=== PATIENT | female | born 1935 | race Hispanic/Latino ===

== ENCOUNTER 2020-11-24 18:46 | Inpatient (IN) | payer OTHER, MEDICARE ==
[~2020-11-24] VITALS: Ht 160 cm; Wt 93.3 kg
[2020-11-24 18:50] VITALS: BP 153/71
[2020-11-24 19:43] LABS: EOSINOPHILS % (AUTO) 1.8 % (0.0-8.0); HEMATOCRIT 39.7 % (36-48); LYMPHOCYTES % (AUTO) 5.1 % (21.0-51.0); MEAN CORPUSCULAR HEMOGLOBIN 26.7 pg (27.0-33.0); MEAN CORPUSCULAR HGB CONC 33.2 g/dL (32.0-36.0); MEAN CORPUSCULAR VOLUME 80.2 fL (79-99); MONOCYTES % (AUTO) 3.9 % (3.0-13.0); NEUTROPHILS % (AUTO) 88.8 % (40.0-77.0); PLATELET COUNT (AUTO) 202 K/uL (130-400); RED BLOOD CELL COUNT(AUTO) 4.95 MIL/uL (4.00-5.50); RED CELL DISTRIBUTION WIDTH 13.5 % (11.0-15.5); WHITE BLOOD COUNT (AUTO) 9.1 K/uL (4.8-10.8)
[2020-11-24 19:52] LABS: ABG BASE EXCESS 3.1 mmol/L (-2.0-3.0); ABG HCO3 25.8 mmol/L (21.0-28.0); ABG OXYGEN SATURATION 73.1 % (95.0-99.0); ABG PCO2 34 mmHg (32-45)
[2020-11-24] MEDS ORDERED: CEFTRIAXONE 2GM VIAL IVP ONE (20:00)
[2020-11-24] MEDS ORDERED: AZITHROMYCIN 500MG+NS 250ML IV ONE (20:00)
[2020-11-24] MEDS ORDERED: 0.9% NACL 250ML IVPB ONE (20:00)
[2020-11-24] MEDS ORDERED: CEFTRIAXONE 1G VIAL 2 GM in 0.9%NACL 100ML 100 ML IV ONE (20:00)
[2020-11-24] MEDS ORDERED: AZITHROMYCIN 500MG VIAL IVPB ONE (20:00)
[2020-11-24 20:19] LABS: ABG BASE EXCESS 3.8 mmol/L (-2.0-3.0); ABG HCO3 26.4 mmol/L (21.0-28.0); ABG OXYGEN SATURATION 69.1 % (95.0-99.0); ABG PCO2 34 mmHg (32-45)
[2020-11-24 20:24] LABS: INR 0.95 (0.85-1.15); PROTHROMBIN TIME 10.4 SEC (9.6-11.6)
[2020-11-24 20:56] LABS: CREATININE 0.6 mg/dL (0.5-1.5); POTASSIUM 3.8 mmol/L (3.5-5.1)
[2020-11-24] MEDS ORDERED: CEFTRIAXONE 2GM VIAL ONE (21:04)
[2020-11-24] MEDS ORDERED: AZITHROMYCIN 500MG+NS 250ML 250 ML IV ONE (21:05)
[2020-11-24 21:07] LABS: ALBUMIN 2.5 g/dL (3.5-5.0); BILIRUBIN,TOTAL 0.4 mg/dL (0.2-1.0); TOTAL PROTEIN, SERUM 6.9 g/dL (6.0-8.3)
[2020-11-24] MEDS ORDERED: DOXY100T2 PO (21:22)
[2020-11-24] MEDS ORDERED: NEO/5DRO7 OP (21:37)
[2020-11-24] MEDS ORDERED: ERGO500093 PO (21:37)
[2020-11-24] MEDS ORDERED: ACET650T9 PO (21:37)
[2020-11-24] MEDS ORDERED: DONE5TAB33 PO (21:37)
[2020-11-24] MEDS ORDERED: AMLO25PO MC (21:37)
[2020-11-24] MEDS ORDERED: [UNRECOGNIZED DRUG - CODE] PO (21:37)
[2020-11-24] MEDS ORDERED: MEMA1TAB2 PO (21:37)
[2020-11-24] MEDS ORDERED: D-ME118S56 PO (21:37)
[2020-11-24] MEDS ORDERED: ALEN70SO3 PO (21:37)
[2020-11-24] MEDS ORDERED: ALBU2.5V2 IH (21:37)
[2020-11-24] MEDS ORDERED: CICL34.62 TP (21:37)
[2020-11-24] MEDS ORDERED: MIRA25TA PO (21:37)
[2020-11-24] MEDS ORDERED: DEXA4TAB PO (21:37)
[2020-11-24] MEDS ORDERED: IVER3TAB PO (21:37)
[2020-11-24 21:41] VITALS: BP 139/71
[2020-11-24] MEDS ORDERED: MAG/ALUM/SIMETH 30 ML UDCUP ONE (22:00)
[2020-11-24] MEDS ORDERED: LIDOCAINE HCL 2% VISCOUS 15 ML UDCUP ONE (22:00)
[2020-11-24] MEDS ORDERED: IOHEXOL 350 MG/ML 100ML INFUS..BTL IV ONE (22:35)
[2020-11-24 23:45] VITALS: BP 152/72
[2020-11-25] VITALS (22 sets, daily range): BP systolic 94–170; BP diastolic 53–115
[2020-11-25] MEDS ORDERED: MAG/ALUM/SIMETH 30 ML UDCUP PO SCH (07:11)
[2020-11-25] MEDS ORDERED: ONDANSETRON ODT 4MG TAB PO PRN (08:00)
[2020-11-25] MEDS ORDERED: ACETAMINOPHEN 325 MG TAB PO PRN ×2 (08:00→12:00)
[2020-11-25] MEDS ORDERED: SOLU-MEDROL 40MG VIAL IVP SCH (09:00)
[2020-11-25] MEDS ORDERED: ENOXAPARIN SODIUM 40 MG/0.4 ML SYRINGE SQ SCH (09:00)
[2020-11-25] MEDS: CEFTRIAXONE 1G VIAL IVP SCH (09:31)
[2020-11-25] MEDS: 0.9% NACL 250ML 250 ML IV SCH ×2 (09:32→20:12)
[2020-11-25] MEDS: DOXYCYCLINE 100MG+NS 250ML IV SCH ×2 (09:32→20:11)
[2020-11-25] MEDS ORDERED: PHARMACY COMMUNICATION MISC SCH (12:00)
[2020-11-25] MEDS: PHARMACY COMMUNICATION MISC SCH ×4 (13:08→23:52)
[2020-11-25] MEDS: DIAZEPAM 5 MG TABLET PO PRN ×2 (14:40→22:29)
[2020-11-25] MEDS ORDERED: DILTIAZEM 25MG INJ IVP SCH (15:00)
[2020-11-25] MEDS ORDERED: SOLU-MEDROL 40MG VIAL IVP ONE (15:30)
[2020-11-25] MEDS ORDERED: DiphenhydrAMINE HCL 50 MG/ML VIAL IVP ONE (15:30)
[2020-11-25] MEDS ORDERED: ACETAMINOPHEN 650 MG/20.3 ML UDCUP NG ONE (15:30)
[2020-11-25] MEDS ORDERED: MAGNESIUM 2GM PREMIX 50ML 50 ML IV ONE (15:45)
[2020-11-25] MEDS ORDERED: TOCILIZUMAB 200MG VIAL 600 MG in 0.9%NACL 100ML 100 ML IV ONE (16:00)
[2020-11-25] MEDS ORDERED: MAGNESIUM 2GM PREMIX 50ML 50 ML IV PRN (16:00)
[2020-11-25] MEDS: SOLU-MEDROL 125MG VIAL IVP SCH ×2 (17:04→23:51)
[2020-11-25 17:11] LABS: APPEARANCE,URINE Clear (CLEAR); BILIRUBIN,URINE Negative (NEGATIVE); COLOR,URINE Yellow (YELLOW); GLUCOSE, URINE (UA) Negative (NEGATIVE); KETONES,URINE Trace mg/dL (NEGATIVE); LEUKOCYTE ESTERASE ,URINE Negative (NEGATIVE); NITRATE,URINE Positive (NEGATIVE); OCCULT BLOOD,URINE Nonhemolyzed Trace (NEGATIVE); PROTEIN,URINE POS 2+ mg/dL (NEGATIVE)
[2020-11-25 17:20] LABS: BACTERIA,URINE Few /HPF (None Seen); WBC,URINE 0-1 /HPF (0-1)
[2020-11-25 17:21] LABS: SQUAMOUS EPITHELIAL CELL,UR Rare /HPF (0-2)
[2020-11-25] MEDS: DILTIAZEM 125 MG/25 ML INJ 125 MG in 0.9%NACL 100ML 100 ML IV SCH (18:08)
[2020-11-25] MEDS: MEMANTINE HCL 5 MG TABLET PO SCH (20:12)
[2020-11-25] MEDS: DONEPEZIL HCL 5 MG TAB PO SCH (20:12)
[2020-11-25] MEDS: ENOXAPARIN SODIUM 80 MG/0.8 ML SQ SCH (20:13)
[2020-11-26] VITALS (47 sets, daily range): BP systolic 64–161; BP diastolic 39–100
[2020-11-26] MEDS: PHARMACY COMMUNICATION MISC SCH ×5 (04:33→21:51)
[2020-11-26 04:50] LABS: HEMATOCRIT 42.5 % (36-48); MEAN CORPUSCULAR HEMOGLOBIN 26.7 pg (27.0-33.0); MEAN CORPUSCULAR HGB CONC 33.2 g/dL (32.0-36.0); MEAN CORPUSCULAR VOLUME 80.5 fL (79-99); RED BLOOD CELL COUNT(AUTO) 5.28 MIL/uL (4.00-5.50); RED CELL DISTRIBUTION WIDTH 13.7 % (11.0-15.5); WHITE BLOOD COUNT (AUTO) 9.7 K/uL (4.8-10.8)
[2020-11-26 05:02] LABS: CREATININE 0.8 mg/dL (0.5-1.5); MAGNESIUM 2.7 mg/dL (1.80-2.40); PHOSPHORUS 3.9 mg/dL (2.5-4.9); POTASSIUM 4.1 mmol/L (3.5-5.1)
[2020-11-26] MEDS: DILTIAZEM 125 MG/25 ML INJ 125 MG in 0.9%NACL 100ML 100 ML IV SCH (05:17)
[2020-11-26 07:20] LABS: ABG BASE EXCESS 0.8 mmol/L (-2.0-3.0); ABG HCO3 25.1 mmol/L (21.0-28.0); ABG OXYGEN SATURATION 94.6 % (95.0-99.0); ABG PCO2 39 mmHg (32-45)
[2020-11-26] MEDS: DOXYCYCLINE 100MG+NS 250ML IV SCH ×2 (07:43→20:43)
[2020-11-26] MEDS: 0.9% NACL 250ML 250 ML IV SCH ×2 (07:44→20:43)
[2020-11-26] MEDS: DIAZEPAM 5 MG TABLET PO PRN ×2 (07:44→13:33)
[2020-11-26] MEDS: CEFTRIAXONE 1G VIAL IVP SCH (07:45)
[2020-11-26] MEDS: SOLU-MEDROL 125MG VIAL IVP SCH ×3 (07:45→23:22)
[2020-11-26] MEDS: ENOXAPARIN SODIUM 80 MG/0.8 ML SQ SCH ×2 (07:46→20:44)
[2020-11-26] MEDS ORDERED: MEMANTINE HCL 5 MG TABLET PO SCH (09:00)
[2020-11-26] MEDS: DEXMEDETOMIDINE HCL 400 MCG in 0.9%NACL 100ML 100 ML IV SCH ×2 (15:05→23:23)
[2020-11-26] MEDS ORDERED: 0.9%NACL 1000ML 1,000 ML IV SCH (18:00)
[2020-11-26] MEDS: DONEPEZIL HCL 5 MG TAB PO SCH (20:44)
[2020-11-26] MEDS: MEMANTINE HCL 5 MG TABLET PO SCH (20:44)
[2020-11-27] VITALS (75 sets, daily range): BP systolic 85–202; BP diastolic 44–117
[2020-11-27] MEDS: PHARMACY COMMUNICATION MISC SCH ×6 (02:00→21:57)
[2020-11-27 04:19] LABS: HEMATOCRIT 38.3 % (36-48); MEAN CORPUSCULAR HEMOGLOBIN 26.6 pg (27.0-33.0); MEAN CORPUSCULAR HGB CONC 32.9 g/dL (32.0-36.0); MEAN CORPUSCULAR VOLUME 80.8 fL (79-99); RED BLOOD CELL COUNT(AUTO) 4.74 MIL/uL (4.00-5.50); RED CELL DISTRIBUTION WIDTH 13.7 % (11.0-15.5); WHITE BLOOD COUNT (AUTO) 9.5 K/uL (4.8-10.8)
[2020-11-27 04:36] LABS: CREATININE 0.7 mg/dL (0.5-1.5); CRP QUANTITATIVE 150.8 mg/L (0.00-9.0); POTASSIUM 4.1 mmol/L (3.5-5.1)
[2020-11-27] MEDS: DILTIAZEM 125 MG/25 ML INJ 125 MG in 0.9%NACL 100ML 100 ML IV SCH (05:46)
[2020-11-27 07:35] LABS: ABG BASE EXCESS -5.5 mmol/L (-2.0-3.0); ABG HCO3 21.4 mmol/L (21.0-28.0); ABG OXYGEN SATURATION 89.5 % (95.0-99.0); ABG PCO2 47 mmHg (32-45)
[2020-11-27] MEDS ORDERED: FENTANYL 2500MCG+NS 250ML 250 ML IV ONE ×2 (08:05→08:27)
[2020-11-27] MEDS: SOLU-MEDROL 125MG VIAL IVP SCH ×3 (09:27→23:22)
[2020-11-27] MEDS: CEFTRIAXONE 1G VIAL IVP SCH (09:28)
[2020-11-27] MEDS: ENOXAPARIN SODIUM 80 MG/0.8 ML SQ SCH ×2 (09:28→21:18)
[2020-11-27] MEDS: 0.9% NACL 250ML 250 ML IV SCH ×2 (09:28→21:17)
[2020-11-27] MEDS: DOXYCYCLINE 100MG+NS 250ML IV SCH ×2 (09:28→21:17)
[2020-11-27 10:02] LABS: ABG BASE EXCESS -4.5 mmol/L (-2.0-3.0); ABG HCO3 21.3 mmol/L (21.0-28.0); ABG PCO2 42 mmHg (32-45)
[2020-11-27 18:55] LABS: INR 1.09 (0.85-1.15); PROTHROMBIN TIME 11.8 SEC (9.6-11.6)
[2020-11-27] MEDS ORDERED: PANTOPRAZOLE 40 MG/VIAL IVP SCH (20:00)
[2020-11-27] MEDS: PHENYLEPHRINE HCL 10 MG in 0.9% NACL 250ML 250 ML IV PRN (20:02)
[2020-11-27] MEDS: CHLORHEXIDINE GLUCONATE 473 ML MOUTHWASH MM SCH (21:17)
[2020-11-27] MEDS: DONEPEZIL HCL 5 MG TAB PO SCH (21:17)
[2020-11-27] MEDS: MEMANTINE HCL 5 MG TABLET PO SCH (21:18)
[2020-11-27] MEDS: MIDAZOLAM 100MG-0.9% NS 100ML 100ML BAG IV PRN (23:41)
[2020-11-28] VITALS (76 sets, daily range): BP systolic 86–148; BP diastolic 28–70
[2020-11-28] MEDS: IPRATROPIUM/ALBUTEROL SULFATE 3 ML SOLUTION IH SCH ×5 (00:37→23:15)
[2020-11-28] MEDS: CHLORHEXIDINE GLUCONATE 473 ML MOUTHWASH MM SCH ×4 (02:24→20:00)
[2020-11-28] MEDS: PHARMACY COMMUNICATION MISC SCH ×2 (02:24→06:12)
[2020-11-28 04:21] LABS: ABG BASE EXCESS -2.8 mmol/L (-2.0-3.0); ABG OXYGEN SATURATION 86.1 % (95.0-99.0); ABG PCO2 39 mmHg (32-45)
[2020-11-28 05:04] LABS: HEMATOCRIT 34.9 % (36-48); MEAN CORPUSCULAR HGB CONC 32.7 g/dL (32.0-36.0); MEAN CORPUSCULAR VOLUME 82.7 fL (79-99); RED BLOOD CELL COUNT(AUTO) 4.22 MIL/uL (4.00-5.50); RED CELL DISTRIBUTION WIDTH 14.1 % (11.0-15.5); WHITE BLOOD COUNT (AUTO) 11.3 K/uL (4.8-10.8)
[2020-11-28 05:12] LABS: CREATININE 1.1 mg/dL (0.5-1.5); CRP QUANTITATIVE 75.3 mg/L (0.00-9.0); POTASSIUM 4.3 mmol/L (3.5-5.1)
[2020-11-28] MEDS: CEFTRIAXONE 1G VIAL IVP SCH (07:22)
[2020-11-28] MEDS: SOLU-MEDROL 125MG VIAL IVP SCH ×2 (07:22→16:11)
[2020-11-28] MEDS: DOXYCYCLINE 100MG+NS 250ML IV SCH ×2 (07:22→20:30)
[2020-11-28] MEDS: 0.9% NACL 250ML 250 ML IV SCH ×2 (07:22→20:31)
[2020-11-28] MEDS: ENOXAPARIN SODIUM 80 MG/0.8 ML SQ SCH ×2 (07:23→20:30)
[2020-11-28] MEDS: MIDAZOLAM 100MG-0.9% NS 100ML 100ML BAG IV PRN (16:12)
[2020-11-28] MEDS: PHENYLEPHRINE HCL 10 MG in 0.9% NACL 250ML 250 ML IV PRN (20:39)
[2020-11-28] MEDS: MEMANTINE HCL 5 MG TABLET PO SCH (21:00)
[2020-11-28] MEDS: DONEPEZIL HCL 5 MG TAB PO SCH (21:00)
[2020-11-29] VITALS (47 sets, daily range): BP systolic 105–193; BP diastolic 50–106
[2020-11-29] MEDS: SOLU-MEDROL 125MG VIAL IVP SCH ×3 (00:52→15:54)
[2020-11-29] MEDS: CHLORHEXIDINE GLUCONATE 473 ML MOUTHWASH MM SCH ×4 (03:05→20:16)
[2020-11-29] MEDS: MIDAZOLAM 100MG-0.9% NS 100ML 100ML BAG IV PRN ×2 (03:05→19:42)
[2020-11-29 05:04] LABS: HEMATOCRIT 35.5 % (36-48); MEAN CORPUSCULAR HEMOGLOBIN 26.7 pg (27.0-33.0); MEAN CORPUSCULAR HGB CONC 31.8 g/dL (32.0-36.0); MEAN CORPUSCULAR VOLUME 83.9 fL (79-99); RED BLOOD CELL COUNT(AUTO) 4.23 MIL/uL (4.00-5.50); RED CELL DISTRIBUTION WIDTH 14.4 % (11.0-15.5); WHITE BLOOD COUNT (AUTO) 11.7 K/uL (4.8-10.8)
[2020-11-29 05:11] LABS: POTASSIUM 4.7 mmol/L (3.5-5.1)
[2020-11-29] MEDS ORDERED: FENTANYL 2500MCG+NS 250ML 250 ML IV ONE (05:24)
[2020-11-29] MEDS: IPRATROPIUM/ALBUTEROL SULFATE 3 ML SOLUTION IH SCH ×3 (06:50→18:28)
[2020-11-29 07:32] LABS: ABG BASE EXCESS -1.1 mmol/L (-2.0-3.0); ABG HCO3 25.3 mmol/L (21.0-28.0); ABG OXYGEN SATURATION 94.7 % (95.0-99.0); ABG PCO2 49 mmHg (32-45)
[2020-11-29] MEDS: DOXYCYCLINE 100MG+NS 250ML IV SCH ×2 (09:17→20:15)
[2020-11-29] MEDS: 0.9% NACL 250ML 250 ML IV SCH ×2 (09:17→20:15)
[2020-11-29] MEDS: CEFTRIAXONE 1G VIAL IVP SCH (09:18)
[2020-11-29] MEDS: ENOXAPARIN SODIUM 80 MG/0.8 ML SQ SCH ×2 (09:19→20:15)
[2020-11-29] MEDS ORDERED: NOREPINEPHRINE 4MG/NS 250ML 250 ML IV SCH (13:00)
[2020-11-29] MEDS: DONEPEZIL HCL 5 MG TAB PO SCH (20:15)
[2020-11-29] MEDS: MEMANTINE HCL 5 MG TABLET PO SCH (20:16)
[2020-11-29] MEDS ORDERED: FUROSEMIDE 20MG VIAL IV ONE (21:30)
[2020-11-30] VITALS (24 sets, daily range): BP systolic 103–128; BP diastolic 40–58
[2020-11-30] MEDS: IPRATROPIUM/ALBUTEROL SULFATE 3 ML SOLUTION IH SCH ×5 (00:01→23:52)
[2020-11-30] MEDS ORDERED: FUROSEMIDE 20MG VIAL ONE (00:06)
[2020-11-30] MEDS: SOLU-MEDROL 125MG VIAL IVP SCH ×3 (00:13→15:40)
[2020-11-30] MEDS: CHLORHEXIDINE GLUCONATE 473 ML MOUTHWASH MM SCH ×4 (02:00→20:47)
[2020-11-30] MEDS: FENTANYL 2500MCG+NS 250ML 250 ML IV SCH (04:00)
[2020-11-30 04:58] LABS: MEAN CORPUSCULAR HEMOGLOBIN 26.8 pg (27.0-33.0); MEAN CORPUSCULAR HGB CONC 31.7 g/dL (32.0-36.0); MEAN CORPUSCULAR VOLUME 84.7 fL (79-99); RED BLOOD CELL COUNT(AUTO) 4.25 MIL/uL (4.00-5.50); RED CELL DISTRIBUTION WIDTH 14.5 % (11.0-15.5); WHITE BLOOD COUNT (AUTO) 10.9 K/uL (4.8-10.8)
[2020-11-30 05:13] LABS: POTASSIUM 4.7 mmol/L (3.5-5.1)
[2020-11-30] MEDS: DOXYCYCLINE 100MG+NS 250ML IV SCH ×2 (09:09→20:29)
[2020-11-30] MEDS: CEFTRIAXONE 1G VIAL IVP SCH (09:09)
[2020-11-30] MEDS: 0.9% NACL 250ML 250 ML IV SCH ×2 (09:09→20:29)
[2020-11-30] MEDS: ENOXAPARIN SODIUM 80 MG/0.8 ML SQ SCH ×2 (09:10→20:46)
[2020-11-30] MEDS: INSULIN HUMULIN R 100 UNIT/ML 3ML SQ SCH ×2 (12:35→18:48)
[2020-11-30] MEDS ORDERED: LACTULOSE 20 GM/30 ML UDCUP PO SCH (15:30)
[2020-11-30] MEDS: MIDAZOLAM 100MG-0.9% NS 100ML 100ML BAG IV PRN (16:40)
[2020-11-30] MEDS: DONEPEZIL HCL 5 MG TAB PO SCH (20:46)
[2020-11-30] MEDS: PANTOPRAZOLE 40 MG/VIAL IVP SCH (20:46)
[2020-11-30] MEDS: MEMANTINE HCL 5 MG TABLET PO SCH (20:46)
[2020-12-01] VITALS (23 sets, daily range): BP systolic 112–130; BP diastolic 50–68
[2020-12-01] MEDS: SOLU-MEDROL 125MG VIAL IVP SCH ×4 (00:58→23:03)
[2020-12-01] MEDS: CHLORHEXIDINE GLUCONATE 473 ML MOUTHWASH MM SCH ×4 (02:36→21:35)
[2020-12-01] MEDS: FENTANYL 2500MCG+NS 250ML 250 ML IV SCH ×2 (03:44→19:23)
[2020-12-01 04:48] LABS: HEMATOCRIT 35.1 % (36-48); MEAN CORPUSCULAR HEMOGLOBIN 26.9 pg (27.0-33.0); MEAN CORPUSCULAR HGB CONC 31.6 g/dL (32.0-36.0); RED BLOOD CELL COUNT(AUTO) 4.13 MIL/uL (4.00-5.50); RED CELL DISTRIBUTION WIDTH 14.6 % (11.0-15.5); WHITE BLOOD COUNT (AUTO) 10.5 K/uL (4.8-10.8)
[2020-12-01] MEDS: MIDAZOLAM 100MG-0.9% NS 100ML 100ML BAG IV PRN ×2 (05:09→14:21)
[2020-12-01 05:13] LABS: CREATININE 0.8 mg/dL (0.5-1.5); POTASSIUM 4.7 mmol/L (3.5-5.1)
[2020-12-01 05:27] LABS: ABG BASE EXCESS -1.1 mmol/L (-2.0-3.0); ABG HCO3 24.3 mmol/L (21.0-28.0); ABG OXYGEN SATURATION 84.5 % (95.0-99.0); ABG PCO2 43 mmHg (32-45)
[2020-12-01] MEDS: IPRATROPIUM/ALBUTEROL SULFATE 3 ML SOLUTION IH SCH ×2 (06:42→11:25)
[2020-12-01] MEDS: INSULIN HUMULIN R 100 UNIT/ML 3ML SQ SCH ×5 (07:20→23:06)
[2020-12-01] MEDS: 0.9% NACL 250ML 250 ML IV SCH ×2 (08:08→20:39)
[2020-12-01] MEDS: CEFTRIAXONE 1G VIAL IVP SCH (08:08)
[2020-12-01] MEDS: DOXYCYCLINE 100MG+NS 250ML IV SCH ×2 (08:08→20:37)
[2020-12-01] MEDS: PANTOPRAZOLE 40 MG/VIAL IVP SCH ×2 (08:08→20:37)
[2020-12-01] MEDS: ENOXAPARIN SODIUM 80 MG/0.8 ML SQ SCH ×2 (08:09→20:37)
[2020-12-01] MEDS ORDERED: PHARMACY COMMUNICATION MISC SCH (18:30)
[2020-12-01] MEDS: CISATRACURIUM BESYLATE 100 MG in 0.9%NACL 100ML 100 ML IV SCH (18:42)
[2020-12-01] MEDS: MEMANTINE HCL 5 MG TABLET PO SCH (20:37)
[2020-12-01] MEDS: DONEPEZIL HCL 5 MG TAB PO SCH (21:34)
[2020-12-02] VITALS (22 sets, daily range): BP systolic 101–178; BP diastolic 43–86
[2020-12-02] MEDS: CHLORHEXIDINE GLUCONATE 473 ML MOUTHWASH MM SCH ×4 (02:00→20:15)
[2020-12-02 04:27] LABS: ABG BASE EXCESS -0.3 mmol/L (-2.0-3.0); ABG HCO3 23.9 mmol/L (21.0-28.0); ABG OXYGEN SATURATION 83.6 % (95.0-99.0); ABG PCO2 37 mmHg (32-45)
[2020-12-02 05:25] LABS: RED BLOOD CELL COUNT(AUTO) 4.13 MIL/uL (4.00-5.50); WHITE BLOOD COUNT (AUTO) 10.7 K/uL (4.8-10.8)
[2020-12-02 05:26] LABS: BASOPHILS % (AUTO) 0.2 % (0.0-5.0); HEMATOCRIT 35.8 % (36-48); LYMPHOCYTES % (AUTO) 3.3 % (21.0-51.0); MEAN CORPUSCULAR HEMOGLOBIN 27.1 pg (27.0-33.0); MEAN CORPUSCULAR HGB CONC 31.3 g/dL (32.0-36.0); MEAN CORPUSCULAR VOLUME 86.7 fL (79-99); MONOCYTES % (AUTO) 1.3 % (3.0-13.0); NEUTROPHILS % (AUTO) 94.6 % (40.0-77.0); NUCLEATED RED BLOOD CELLS 0.2 % (0.0-0.19); PLATELET COUNT (AUTO) 162 K/uL (130-400); RED CELL DISTRIBUTION WIDTH 14.7 % (11.0-15.5)
[2020-12-02] MEDS: INSULIN HUMULIN R 100 UNIT/ML 3ML SQ SCH ×3 (06:01→17:17)
[2020-12-02 06:02] LABS: ALBUMIN 1.9 g/dL (3.5-5.0); BILIRUBIN,TOTAL 0.3 mg/dL (0.2-1.0); CREATININE 0.7 mg/dL (0.5-1.5); TOTAL PROTEIN, SERUM 4.4 g/dL (6.0-8.3)
[2020-12-02] MEDS: IPRATROPIUM/ALBUTEROL SULFATE 3 ML SOLUTION IH SCH (06:52)
[2020-12-02] MEDS: DOXYCYCLINE 100MG+NS 250ML IV SCH ×2 (08:27→20:14)
[2020-12-02] MEDS: 0.9% NACL 250ML 250 ML IV SCH ×2 (08:27→20:14)
[2020-12-02] MEDS: PANTOPRAZOLE 40 MG/VIAL IVP SCH ×2 (08:28→20:15)
[2020-12-02] MEDS: CEFTRIAXONE 1G VIAL IVP SCH (08:28)
[2020-12-02] MEDS: SOLU-MEDROL 125MG VIAL IVP SCH (08:28)
[2020-12-02] MEDS: ERGOCALCIFEROL (VITAMIN D2) 50,000 UNIT CAPSULE PO SCH (08:29)
[2020-12-02] MEDS ORDERED: AMIODARONE 900MG VIAL 450 MG in DEXTROSE 5%-WATER 250 ML IV SCH (13:00)
[2020-12-02] MEDS ORDERED: PHARMACY COMMUNICATION MISC SCH (13:00)
[2020-12-02] MEDS ORDERED: AMIODARONE 150MG VIAL 150 MG in DEXTROSE 5%-WATER 100 ML IV SCH (13:00)
[2020-12-02] MEDS: AMIODARONE 900MG VIAL 360 MG in DEXTROSE 5%-WATER 200 ML IV SCH (13:15)
[2020-12-02] MEDS: MIDAZOLAM 100MG-0.9% NS 100ML 100ML BAG IV PRN (15:15)
[2020-12-02] MEDS: FENTANYL 2500MCG+NS 250ML 250 ML IV SCH (15:16)
[2020-12-02] MEDS: CISATRACURIUM BESYLATE 100 MG in 0.9%NACL 100ML 100 ML IV SCH (20:14)
[2020-12-02] MEDS: MEMANTINE HCL 5 MG TABLET PO SCH (20:15)
[2020-12-02] MEDS: DONEPEZIL HCL 5 MG TAB PO SCH (20:15)
[2020-12-02] MEDS: ENOXAPARIN SODIUM 40 MG/0.4 ML SYRINGE SQ SCH (21:20)
[2020-12-03] VITALS (36 sets, daily range): BP systolic 77–156; BP diastolic 42–87
[2020-12-03] MEDS: SOLU-MEDROL 125MG VIAL IVP SCH ×4 (01:27→23:15)
[2020-12-03] MEDS: INSULIN HUMULIN R 100 UNIT/ML 3ML SQ SCH ×5 (01:27→23:30)
[2020-12-03] MEDS: CHLORHEXIDINE GLUCONATE 473 ML MOUTHWASH MM SCH ×4 (01:39→20:07)
[2020-12-03] MEDS: MIDAZOLAM 100MG-0.9% NS 100ML 100ML BAG IV PRN ×3 (02:02→23:14)
[2020-12-03] MEDS ORDERED: LABETALOL 20MG SYG IV ONE (02:18)
[2020-12-03] MEDS ORDERED: METOPROLOL TARTRATE 1 MG/ML 5ML VIAL IV ONE ×2 (02:30→21:30)
[2020-12-03 04:45] LABS: ABG BASE EXCESS -0.8 mmol/L (-2.0-3.0); ABG HCO3 26.9 mmol/L (21.0-28.0); ABG OXYGEN SATURATION 83.3 % (95.0-99.0); ABG PCO2 57 mmHg (32-45)
[2020-12-03] MEDS: FENTANYL 2500MCG+NS 250ML 250 ML IV SCH ×2 (05:14→19:31)
[2020-12-03 05:33] LABS: BASOPHILS % (AUTO) 0.1 % (0.0-5.0); HEMATOCRIT 39.2 % (36-48); LYMPHOCYTES % (AUTO) 2.8 % (21.0-51.0); MEAN CORPUSCULAR HEMOGLOBIN 26.9 pg (27.0-33.0); MEAN CORPUSCULAR HGB CONC 30.6 g/dL (32.0-36.0); MEAN CORPUSCULAR VOLUME 87.9 fL (79-99); MONOCYTES % (AUTO) 1.1 % (3.0-13.0); NEUTROPHILS % (AUTO) 94.9 % (40.0-77.0); PLATELET COUNT (AUTO) 175 K/uL (130-400); RED BLOOD CELL COUNT(AUTO) 4.46 MIL/uL (4.00-5.50); RED CELL DISTRIBUTION WIDTH 15.2 % (11.0-15.5); WHITE BLOOD COUNT (AUTO) 14.2 K/uL (4.8-10.8)
[2020-12-03 05:53] LABS: CREATININE 0.8 mg/dL (0.5-1.5); POTASSIUM 5.4 mmol/L (3.5-5.1)
[2020-12-03] MEDS: AMIODARONE 900MG VIAL 360 MG in DEXTROSE 5%-WATER 200 ML IV SCH (07:14)
[2020-12-03] MEDS: 0.9% NACL 250ML 250 ML IV SCH ×2 (08:35→19:28)
[2020-12-03] MEDS: DOXYCYCLINE 100MG+NS 250ML IV SCH ×2 (08:35→19:28)
[2020-12-03] MEDS: PANTOPRAZOLE 40 MG/VIAL IVP SCH ×2 (08:35→20:07)
[2020-12-03] MEDS: CEFTRIAXONE 1G VIAL IVP SCH (08:35)
[2020-12-03] MEDS: CISATRACURIUM BESYLATE 100 MG in 0.9%NACL 100ML 100 ML IV SCH ×2 (08:44→20:16)
[2020-12-03] MEDS: KAYEXALATE 15GM/60ML PO SCH (08:47)
[2020-12-03] MEDS ORDERED: COMPOUND IV REFRIGERATED 1 EACH IVSOLN MISC PRN (19:00)
[2020-12-03] MEDS: MEMANTINE HCL 5 MG TABLET PO SCH (20:07)
[2020-12-03] MEDS: AMIODARONE 200 MG TABLET PO SCH (20:07)
[2020-12-03] MEDS: DONEPEZIL HCL 5 MG TAB PO SCH (20:07)
[2020-12-03] MEDS: ENOXAPARIN SODIUM 40 MG/0.4 ML SYRINGE SQ SCH (21:31)
[2020-12-04] VITALS (54 sets, daily range): BP systolic 79–141; BP diastolic 35–71
[2020-12-04] MEDS: CHLORHEXIDINE GLUCONATE 473 ML MOUTHWASH MM SCH ×4 (02:30→19:53)
[2020-12-04] MEDS ORDERED: METOPROLOL TARTRATE 1 MG/ML 5ML VIAL IV ONE (03:48)
[2020-12-04 04:15] LABS: ABG BASE EXCESS -0.5 mmol/L (-2.0-3.0); ABG HCO3 25.7 mmol/L (21.0-28.0); ABG OXYGEN SATURATION 84.8 % (95.0-99.0); ABG PCO2 49 mmHg (32-45)
[2020-12-04 04:38] LABS: BASOPHILS % (AUTO) 0.1 % (0.0-5.0); HEMATOCRIT 39.4 % (36-48); LYMPHOCYTES % (AUTO) 2.5 % (21.0-51.0); MEAN CORPUSCULAR HEMOGLOBIN 26.5 pg (27.0-33.0); MEAN CORPUSCULAR HGB CONC 29.7 g/dL (32.0-36.0); MEAN CORPUSCULAR VOLUME 89.1 fL (79-99); MONOCYTES % (AUTO) 1.1 % (3.0-13.0); NEUTROPHILS % (AUTO) 95.5 % (40.0-77.0); PLATELET COUNT (AUTO) 150 K/uL (130-400); RED BLOOD CELL COUNT(AUTO) 4.42 MIL/uL (4.00-5.50); RED CELL DISTRIBUTION WIDTH 15.1 % (11.0-15.5); WHITE BLOOD COUNT (AUTO) 14.2 K/uL (4.8-10.8)
[2020-12-04 05:02] LABS: CREATININE 0.7 mg/dL (0.5-1.5); MAGNESIUM 2.4 mg/dL (1.80-2.40); POTASSIUM 4.3 mmol/L (3.5-5.1)
[2020-12-04] MEDS: INSULIN HUMULIN R 100 UNIT/ML 3ML SQ SCH ×4 (05:19→23:50)
[2020-12-04] MEDS: PHENYLEPHRINE HCL 10 MG in 0.9% NACL 250ML 250 ML IV PRN ×2 (05:43→13:33)
[2020-12-04] MEDS: FENTANYL 2500MCG+NS 250ML 250 ML IV SCH (07:25)
[2020-12-04] MEDS: CISATRACURIUM BESYLATE 100 MG in 0.9%NACL 100ML 100 ML IV SCH ×2 (07:25→19:52)
[2020-12-04] MEDS: CEFTRIAXONE 1G VIAL IVP SCH (07:26)
[2020-12-04] MEDS: KAYEXALATE 15GM/60ML PO SCH (07:26)
[2020-12-04] MEDS: DOXYCYCLINE 100MG+NS 250ML IV SCH ×2 (07:26→19:52)
[2020-12-04] MEDS: 0.9% NACL 250ML 250 ML IV SCH ×2 (07:26→19:53)
[2020-12-04] MEDS: PANTOPRAZOLE 40 MG/VIAL IVP SCH ×2 (07:30→19:53)
[2020-12-04] MEDS: AMIODARONE 200 MG TABLET PO SCH ×2 (07:30→19:53)
[2020-12-04] MEDS: SOLU-MEDROL 125MG VIAL IVP SCH ×3 (07:30→23:49)
[2020-12-04] MEDS: MIDAZOLAM 100MG-0.9% NS 100ML 100ML BAG IV PRN ×2 (08:53→19:55)
[2020-12-04] MEDS: FUROSEMIDE 20MG VIAL IV SCH ×2 (10:40→17:06)
[2020-12-04] MEDS ORDERED: FENTANYL 2500MCG+NS 250ML 250 ML IV ONE (19:45)
[2020-12-04] MEDS: MEMANTINE HCL 5 MG TABLET PO SCH (19:52)
[2020-12-04] MEDS: DONEPEZIL HCL 5 MG TAB PO SCH (19:52)
[2020-12-04] MEDS: ENOXAPARIN SODIUM 40 MG/0.4 ML SYRINGE SQ SCH (19:52)
[2020-12-04] MEDS ORDERED: FENTANYL CITRATE PF 0.05 MG/ML 1,000 MCG in 0.9%NACL 100ML 100 ML IVPB SCH (22:00)
[2020-12-05] VITALS (29 sets, daily range): BP systolic 92–121; BP diastolic 40–63
[2020-12-05] MEDS: CHLORHEXIDINE GLUCONATE 473 ML MOUTHWASH MM SCH ×4 (01:01→21:08)
[2020-12-05] MEDS: FUROSEMIDE 20MG VIAL IV SCH ×3 (01:51→18:08)
[2020-12-05 04:05] LABS: ABG BASE EXCESS 0.6 mmol/L (-2.0-3.0); ABG HCO3 26.9 mmol/L (21.0-28.0); ABG OXYGEN SATURATION 93.4 % (95.0-99.0); ABG PCO2 50 mmHg (32-45)
[2020-12-05 05:12] LABS: BASOPHILS % (AUTO) 0.2 % (0.0-5.0); HEMATOCRIT 35.3 % (36-48); LYMPHOCYTES % (AUTO) 2.6 % (21.0-51.0); MEAN CORPUSCULAR HEMOGLOBIN 26.7 pg (27.0-33.0); MEAN CORPUSCULAR HGB CONC 30.9 g/dL (32.0-36.0); MEAN CORPUSCULAR VOLUME 86.5 fL (79-99); MONOCYTES % (AUTO) 1.6 % (3.0-13.0); NEUTROPHILS % (AUTO) 94.8 % (40.0-77.0); PLATELET COUNT (AUTO) 122 K/uL (130-400); RED BLOOD CELL COUNT(AUTO) 4.08 MIL/uL (4.00-5.50); RED CELL DISTRIBUTION WIDTH 14.8 % (11.0-15.5); WHITE BLOOD COUNT (AUTO) 12.8 K/uL (4.8-10.8)
[2020-12-05 05:36] LABS: CREATININE 0.7 mg/dL (0.5-1.5); MAGNESIUM 2.3 mg/dL (1.80-2.40); POTASSIUM 4.4 mmol/L (3.5-5.1)
[2020-12-05] MEDS: INSULIN HUMULIN R 100 UNIT/ML 3ML SQ SCH ×3 (06:36→18:00)
[2020-12-05] MEDS: FENTANYL 2500MCG+NS 250ML 250 ML IV SCH ×2 (06:37→16:07)
[2020-12-05] MEDS: CISATRACURIUM BESYLATE 100 MG in 0.9%NACL 100ML 100 ML IV SCH ×2 (06:37→18:21)
[2020-12-05] MEDS: MIDAZOLAM 100MG-0.9% NS 100ML 100ML BAG IV PRN ×2 (06:38→16:05)
[2020-12-05] MEDS: KAYEXALATE 15GM/60ML PO SCH (08:30)
[2020-12-05] MEDS: DOXYCYCLINE 100MG+NS 250ML IV SCH ×2 (08:58→21:07)
[2020-12-05] MEDS: SOLU-MEDROL 125MG VIAL IVP SCH ×2 (08:58→16:05)
[2020-12-05] MEDS: AMIODARONE 200 MG TABLET PO SCH ×2 (08:58→21:08)
[2020-12-05] MEDS: CEFTRIAXONE 1G VIAL IVP SCH (08:58)
[2020-12-05] MEDS: 0.9% NACL 250ML 250 ML IV SCH ×2 (08:58→21:07)
[2020-12-05] MEDS: PANTOPRAZOLE 40 MG/VIAL IVP SCH ×2 (09:04→21:07)
[2020-12-05] MEDS: MEMANTINE HCL 5 MG TABLET PO SCH (21:08)
[2020-12-05] MEDS: DONEPEZIL HCL 5 MG TAB PO SCH (21:08)
[2020-12-05] MEDS: INSULIN GLARGINE 100 UNITS/ML 10 ML VIAL SQ SCH (21:18)
[2020-12-05] MEDS: ENOXAPARIN SODIUM 40 MG/0.4 ML SYRINGE SQ SCH (21:36)
[2020-12-06] VITALS (34 sets, daily range): BP systolic 100–128; BP diastolic 43–67
[2020-12-06] MEDS: MIDAZOLAM 100MG-0.9% NS 100ML 100ML BAG IV PRN ×3 (00:01→22:34)
[2020-12-06] MEDS: INSULIN HUMULIN R 100 UNIT/ML 3ML SQ SCH ×4 (00:03→18:02)
[2020-12-06] MEDS: CHLORHEXIDINE GLUCONATE 473 ML MOUTHWASH MM SCH ×4 (02:09→20:00)
[2020-12-06] MEDS: FUROSEMIDE 20MG VIAL IV SCH ×2 (02:50→10:31)
[2020-12-06] MEDS: CISATRACURIUM BESYLATE 100 MG in 0.9%NACL 100ML 100 ML IV SCH (05:16)
[2020-12-06 06:11] LABS: BASOPHILS % (AUTO) 0.1 % (0.0-5.0); HEMATOCRIT 34.6 % (36-48); MEAN CORPUSCULAR HEMOGLOBIN 26.6 pg (27.0-33.0); MEAN CORPUSCULAR HGB CONC 30.9 g/dL (32.0-36.0); MEAN CORPUSCULAR VOLUME 86.1 fL (79-99); NEUTROPHILS % (AUTO) 94.2 % (40.0-77.0); PLATELET COUNT (AUTO) 100 K/uL (130-400); RED BLOOD CELL COUNT(AUTO) 4.02 MIL/uL (4.00-5.50); RED CELL DISTRIBUTION WIDTH 14.5 % (11.0-15.5); WHITE BLOOD COUNT (AUTO) 13.9 K/uL (4.8-10.8)
[2020-12-06 06:25] LABS: CREATININE 0.8 mg/dL (0.5-1.5); POTASSIUM 4.2 mmol/L (3.5-5.1)
[2020-12-06 07:26] LABS: ABG BASE EXCESS 1.8 mmol/L (-2.0-3.0); ABG HCO3 26.2 mmol/L (21.0-28.0); ABG OXYGEN SATURATION 86.9 % (95.0-99.0); ABG PCO2 41 mmHg (32-45)
[2020-12-06] MEDS: KAYEXALATE 15GM/60ML PO SCH (08:30)
[2020-12-06] MEDS: PANTOPRAZOLE 40 MG/VIAL IVP SCH ×2 (08:58→22:28)
[2020-12-06] MEDS: AMIODARONE 200 MG TABLET PO SCH ×2 (08:58→22:28)
[2020-12-06] MEDS: DOXYCYCLINE 100MG+NS 250ML IV SCH ×2 (08:58→20:00)
[2020-12-06] MEDS: 0.9% NACL 250ML 250 ML IV SCH ×2 (08:58→20:00)
[2020-12-06] MEDS: CEFTRIAXONE 1G VIAL IVP SCH (08:58)
[2020-12-06] MEDS: SOLU-MEDROL 125MG VIAL IVP SCH ×3 (08:58→16:00)
[2020-12-06] MEDS: FENTANYL 2500MCG+NS 250ML 250 ML IV SCH (10:30)
[2020-12-06] MEDS: INSULIN GLARGINE 100 UNITS/ML 10 ML VIAL SQ SCH (21:00)
[2020-12-06] MEDS: MEMANTINE HCL 5 MG TABLET PO SCH (22:28)
[2020-12-06] MEDS: DONEPEZIL HCL 5 MG TAB PO SCH (22:28)
[2020-12-06] MEDS: ENOXAPARIN SODIUM 40 MG/0.4 ML SYRINGE SQ SCH (22:29)
[2020-12-07] VITALS (25 sets, daily range): BP systolic 102–129; BP diastolic 47–69
[2020-12-07] MEDS: CHLORHEXIDINE GLUCONATE 473 ML MOUTHWASH MM SCH ×4 (02:35→20:23)
[2020-12-07] MEDS: FENTANYL 2500MCG+NS 250ML 250 ML IV SCH ×2 (02:36→14:14)
[2020-12-07] MEDS: CISATRACURIUM BESYLATE 100 MG in 0.9%NACL 100ML 100 ML IV SCH ×2 (02:37→14:15)
[2020-12-07 04:37] LABS: HEMATOCRIT 35.8 % (36-48); MEAN CORPUSCULAR HEMOGLOBIN 26.8 pg (27.0-33.0); MEAN CORPUSCULAR HGB CONC 31.3 g/dL (32.0-36.0); MEAN CORPUSCULAR VOLUME 85.6 fL (79-99); RED BLOOD CELL COUNT(AUTO) 4.18 MIL/uL (4.00-5.50); RED CELL DISTRIBUTION WIDTH 14.6 % (11.0-15.5); WHITE BLOOD COUNT (AUTO) 13.8 K/uL (4.8-10.8)
[2020-12-07 04:38] LABS: ABG BASE EXCESS 2.8 mmol/L (-2.0-3.0); ABG HCO3 27.5 mmol/L (21.0-28.0); ABG OXYGEN SATURATION 87.6 % (95.0-99.0); ABG PCO2 43 mmHg (32-45)
[2020-12-07 04:50] LABS: CARBON DIOXIDE 31 mmol/L (21-32); CHLORIDE 114 mmol/L (101-111); CREATININE 0.7 mg/dL (0.5-1.5); GLOMERULAR FILTR. RATE CALC 85 mL/min (>60); GLUCOSE,RANDOM 200 mg/dL (70-105); POTASSIUM 4.7 mmol/L (3.5-5.1); SODIUM SERUM 149 mmol/L (136-145)
[2020-12-07 05:06] LABS: CRP QUANTITATIVE < 2.00 mg/L (0.00-9.0); UREA NITROGEN, BLOOD 92 mg/dL (7-18)
[2020-12-07] MEDS: INSULIN HUMULIN R 100 UNIT/ML 3ML SQ SCH ×4 (05:24→19:18)
[2020-12-07] MEDS: MIDAZOLAM 100MG-0.9% NS 100ML 100ML BAG IV PRN ×2 (07:12→18:08)
[2020-12-07] MEDS: DOXYCYCLINE 100MG+NS 250ML IV SCH ×2 (08:22→20:21)
[2020-12-07] MEDS: 0.9% NACL 250ML 250 ML IV SCH ×2 (08:23→20:21)
[2020-12-07] MEDS: PANTOPRAZOLE 40 MG/VIAL IVP SCH ×2 (08:24→20:23)
[2020-12-07] MEDS: AMIODARONE 200 MG TABLET PO SCH ×2 (08:24→20:22)
[2020-12-07] MEDS: SOLU-MEDROL 125MG VIAL IVP SCH ×3 (08:25→15:34)
[2020-12-07] MEDS: CEFTRIAXONE 1G VIAL IVP SCH (08:25)
[2020-12-07] MEDS: KAYEXALATE 15GM/60ML PO SCH (08:30)
[2020-12-07] MEDS: MEMANTINE HCL 5 MG TABLET PO SCH (20:22)
[2020-12-07] MEDS: DONEPEZIL HCL 5 MG TAB PO SCH (20:22)
[2020-12-07] MEDS: INSULIN GLARGINE 100 UNITS/ML 10 ML VIAL SQ SCH (20:30)
[2020-12-07] MEDS: ENOXAPARIN SODIUM 40 MG/0.4 ML SYRINGE SQ SCH (20:33)
[2020-12-08] VITALS (24 sets, daily range): BP systolic 102–128; BP diastolic 55–69
[2020-12-08] MEDS: SOLU-MEDROL 125MG VIAL IVP SCH ×4 (00:17→21:01)
[2020-12-08] MEDS: INSULIN HUMULIN R 100 UNIT/ML 3ML SQ SCH ×5 (00:21→23:34)
[2020-12-08] MEDS: CISATRACURIUM BESYLATE 100 MG in 0.9%NACL 100ML 100 ML IV SCH ×3 (00:38→23:18)
[2020-12-08] MEDS: CHLORHEXIDINE GLUCONATE 473 ML MOUTHWASH MM SCH ×4 (02:51→21:13)
[2020-12-08] MEDS: FENTANYL 2500MCG+NS 250ML 250 ML IV SCH ×2 (03:09→13:29)
[2020-12-08] MEDS: MIDAZOLAM 100MG-0.9% NS 100ML 100ML BAG IV PRN ×3 (03:24→23:16)
[2020-12-08 03:32] LABS: ABG BASE EXCESS -0.7 mmol/L (-2.0-3.0); ABG HCO3 25.5 mmol/L (21.0-28.0); ABG OXYGEN SATURATION 90.9 % (95.0-99.0); ABG PCO2 48 mmHg (32-45)
[2020-12-08 05:18] LABS: HEMATOCRIT 39.2 % (36-48); MEAN CORPUSCULAR HEMOGLOBIN 26.8 pg (27.0-33.0); MEAN CORPUSCULAR HGB CONC 30.4 g/dL (32.0-36.0); MEAN CORPUSCULAR VOLUME 88.3 fL (79-99); RED BLOOD CELL COUNT(AUTO) 4.44 MIL/uL (4.00-5.50); RED CELL DISTRIBUTION WIDTH 14.7 % (11.0-15.5); WHITE BLOOD COUNT (AUTO) 17.8 K/uL (4.8-10.8)
[2020-12-08 05:38] LABS: CARBON DIOXIDE 27 mmol/L (21-32); CHLORIDE 113 mmol/L (101-111); CREATININE 0.7 mg/dL (0.5-1.5); GLOMERULAR FILTR. RATE CALC 85 mL/min (>60); GLUCOSE,RANDOM 235 mg/dL (70-105); PHOSPHORUS 4.8 mg/dL (2.5-4.9); POTASSIUM 5.1 mmol/L (3.5-5.1); SODIUM SERUM 148 mmol/L (136-145)
[2020-12-08 05:42] LABS: CRP QUANTITATIVE < 2.00 mg/L (0.00-9.0)
[2020-12-08 05:43] LABS: UREA NITROGEN, BLOOD 88 mg/dL (7-18)
[2020-12-08] MEDS: DOXYCYCLINE 100MG+NS 250ML IV SCH ×2 (08:09→20:59)
[2020-12-08] MEDS: PANTOPRAZOLE 40 MG/VIAL IVP SCH ×2 (08:09→21:00)
[2020-12-08] MEDS: 0.9% NACL 250ML 250 ML IV SCH ×2 (08:09→20:59)
[2020-12-08] MEDS: AMIODARONE 200 MG TABLET PO SCH ×2 (08:10→21:01)
[2020-12-08] MEDS: CEFTRIAXONE 1G VIAL IVP SCH (08:10)
[2020-12-08] MEDS: LACTULOSE 20 GM/30 ML UDCUP PO PRN (09:36)
[2020-12-08] MEDS: FUROSEMIDE 20MG VIAL IV SCH ×2 (14:15→21:26)
[2020-12-08] MEDS: MEMANTINE HCL 5 MG TABLET PO SCH (21:01)
[2020-12-08] MEDS: INSULIN GLARGINE 100 UNITS/ML 10 ML VIAL SQ SCH (21:05)
[2020-12-08] MEDS: DONEPEZIL HCL 5 MG TAB PO SCH (21:07)
[2020-12-08] MEDS: ENOXAPARIN SODIUM 40 MG/0.4 ML SYRINGE SQ SCH (21:09)
[2020-12-09] VITALS (22 sets, daily range): BP systolic 90–166; BP diastolic 51–82
[2020-12-09] MEDS: FENTANYL 2500MCG+NS 250ML 250 ML IV SCH ×2 (02:31→14:19)
[2020-12-09] MEDS: CHLORHEXIDINE GLUCONATE 473 ML MOUTHWASH MM SCH ×4 (02:36→21:26)
[2020-12-09 04:46] LABS: BASOPHILS % (AUTO) 0.1 % (0.0-5.0); HEMATOCRIT 36.1 % (36-48); LYMPHOCYTES % (AUTO) 3.2 % (21.0-51.0); MEAN CORPUSCULAR HEMOGLOBIN 27.1 pg (27.0-33.0); MEAN CORPUSCULAR HGB CONC 30.7 g/dL (32.0-36.0); MEAN CORPUSCULAR VOLUME 88.3 fL (79-99); MONOCYTES % (AUTO) 1.7 % (3.0-13.0); NEUTROPHILS % (AUTO) 94.4 % (40.0-77.0); PLATELET COUNT (AUTO) 91 K/uL (130-400); RED BLOOD CELL COUNT(AUTO) 4.09 MIL/uL (4.00-5.50); RED CELL DISTRIBUTION WIDTH 14.8 % (11.0-15.5)
[2020-12-09 05:01] LABS: CREATININE 0.7 mg/dL (0.5-1.5); MAGNESIUM 2.4 mg/dL (1.80-2.40); PHOSPHORUS 4.4 mg/dL (2.5-4.9); POTASSIUM 4.3 mmol/L (3.5-5.1)
[2020-12-09 05:46] LABS: ABG BASE EXCESS 1.9 mmol/L (-2.0-3.0); ABG HCO3 27.5 mmol/L (21.0-28.0); ABG OXYGEN SATURATION 90.6 % (95.0-99.0); ABG PCO2 47 mmHg (32-45)
[2020-12-09] MEDS: INSULIN HUMULIN R 100 UNIT/ML 3ML SQ SCH ×3 (05:50→18:38)
[2020-12-09] MEDS: FUROSEMIDE 20MG VIAL IV SCH (06:30)
[2020-12-09] MEDS: 0.9% NACL 250ML 250 ML IV SCH ×2 (08:00→20:00)
[2020-12-09] MEDS: AMIODARONE 200 MG TABLET PO SCH ×2 (08:31→21:26)
[2020-12-09] MEDS: ERGOCALCIFEROL (VITAMIN D2) 50,000 UNIT CAPSULE PO SCH (08:31)
[2020-12-09] MEDS: SOLU-MEDROL 125MG VIAL IVP SCH ×2 (08:32→21:26)
[2020-12-09] MEDS: PANTOPRAZOLE 40 MG/VIAL IVP SCH ×2 (08:32→21:26)
[2020-12-09] MEDS: MIDAZOLAM 100MG-0.9% NS 100ML 100ML BAG IV PRN ×2 (08:34→19:38)
[2020-12-09] MEDS: CISATRACURIUM BESYLATE 100 MG in 0.9%NACL 100ML 100 ML IV SCH ×2 (10:40→22:31)
[2020-12-09] MEDS: MEMANTINE HCL 5 MG TABLET PO SCH (21:26)
[2020-12-09] MEDS: DONEPEZIL HCL 5 MG TAB PO SCH (21:26)
[2020-12-09] MEDS: INSULIN GLARGINE 100 UNITS/ML 10 ML VIAL SQ SCH (21:31)
[2020-12-09] MEDS: ENOXAPARIN SODIUM 40 MG/0.4 ML SYRINGE SQ SCH (21:33)
[2020-12-10] VITALS (25 sets, daily range): BP systolic 92–121; BP diastolic 50–64
[2020-12-10] MEDS: INSULIN HUMULIN R 100 UNIT/ML 3ML SQ SCH ×5 (00:59→23:41)
[2020-12-10] MEDS: CHLORHEXIDINE GLUCONATE 473 ML MOUTHWASH MM SCH ×4 (02:12→20:22)
[2020-12-10] MEDS: FENTANYL 2500MCG+NS 250ML 250 ML IV SCH ×2 (03:07→17:30)
[2020-12-10 04:26] LABS: ABG BASE EXCESS -1.5 mmol/L (-2.0-3.0); ABG HCO3 23.3 mmol/L (21.0-28.0); ABG OXYGEN SATURATION 89.9 % (95.0-99.0); ABG PCO2 40 mmHg (32-45)
[2020-12-10 04:45] LABS: HEMATOCRIT 34.6 % (36-48); MEAN CORPUSCULAR HGB CONC 30.9 g/dL (32.0-36.0); MEAN CORPUSCULAR VOLUME 87.4 fL (79-99); RED BLOOD CELL COUNT(AUTO) 3.96 MIL/uL (4.00-5.50); RED CELL DISTRIBUTION WIDTH 15.2 % (11.0-15.5); WHITE BLOOD COUNT (AUTO) 16.3 K/uL (4.8-10.8)
[2020-12-10 04:59] LABS: CREATININE 0.7 mg/dL (0.5-1.5); POTASSIUM 4.5 mmol/L (3.5-5.1)
[2020-12-10] MEDS: MIDAZOLAM 100MG-0.9% NS 100ML 100ML BAG IV PRN ×2 (05:32→14:44)
[2020-12-10] MEDS: 0.9% NACL 250ML 250 ML IV SCH (08:00)
[2020-12-10] MEDS: AMIODARONE 200 MG TABLET PO SCH ×2 (08:31→20:28)
[2020-12-10] MEDS: SOLU-MEDROL 125MG VIAL IVP SCH ×2 (08:31→20:27)
[2020-12-10] MEDS: PANTOPRAZOLE 40 MG/VIAL IVP SCH ×2 (08:31→20:27)
[2020-12-10] MEDS: CISATRACURIUM BESYLATE 100 MG in 0.9%NACL 100ML 100 ML IV SCH ×2 (11:27→23:43)
[2020-12-10] MEDS: MEMANTINE HCL 5 MG TABLET PO SCH (20:27)
[2020-12-10] MEDS: DONEPEZIL HCL 5 MG TAB PO SCH (20:28)
[2020-12-10] MEDS: INSULIN GLARGINE 100 UNITS/ML 10 ML VIAL SQ SCH (20:29)
[2020-12-10] MEDS: ENOXAPARIN SODIUM 40 MG/0.4 ML SYRINGE SQ SCH (20:50)
[2020-12-10 22:52] LABS: ABG BASE EXCESS 0.8 mmol/L (-2.0-3.0); ABG PCO2 44 mmHg (32-45)
[2020-12-11] VITALS (23 sets, daily range): BP systolic 95–133; BP diastolic 48–78
[2020-12-11] MEDS: CHLORHEXIDINE GLUCONATE 473 ML MOUTHWASH MM SCH ×4 (02:06→21:09)
[2020-12-11] MEDS: MIDAZOLAM 100MG-0.9% NS 100ML 100ML BAG IV PRN ×2 (03:33→16:04)
[2020-12-11 04:25] LABS: HEMATOCRIT 34.1 % (36-48); MEAN CORPUSCULAR HEMOGLOBIN 27.1 pg (27.0-33.0); MEAN CORPUSCULAR HGB CONC 31.1 g/dL (32.0-36.0); MEAN CORPUSCULAR VOLUME 87.2 fL (79-99); PLATELET COUNT (AUTO) 67 K/uL (130-400); RED BLOOD CELL COUNT(AUTO) 3.91 MIL/uL (4.00-5.50); RED CELL DISTRIBUTION WIDTH 15.4 % (11.0-15.5); WHITE BLOOD COUNT (AUTO) 14.1 K/uL (4.8-10.8)
[2020-12-11 04:47] LABS: CREATININE 0.6 mg/dL (0.5-1.5); POTASSIUM 4.7 mmol/L (3.5-5.1)
[2020-12-11] MEDS: FENTANYL 2500MCG+NS 250ML 250 ML IV SCH ×2 (05:53→21:15)
[2020-12-11] MEDS: INSULIN HUMULIN R 100 UNIT/ML 3ML SQ SCH ×3 (06:00→18:11)
[2020-12-11] MEDS: 0.9% NACL 250ML 250 ML IV SCH ×3 (07:30→20:00)
[2020-12-11] MEDS: PANTOPRAZOLE 40 MG/VIAL IVP SCH ×2 (09:16→21:09)
[2020-12-11] MEDS: AMIODARONE 200 MG TABLET PO SCH ×2 (09:16→21:10)
[2020-12-11] MEDS: SOLU-MEDROL 125MG VIAL IVP SCH ×2 (09:16→21:09)
[2020-12-11] MEDS: CISATRACURIUM BESYLATE 100 MG in 0.9%NACL 100ML 100 ML IV SCH (10:51)
[2020-12-11] MEDS: MEMANTINE HCL 5 MG TABLET PO SCH (21:10)
[2020-12-11] MEDS: ENOXAPARIN SODIUM 40 MG/0.4 ML SYRINGE SQ SCH (21:10)
[2020-12-11] MEDS: DONEPEZIL HCL 5 MG TAB PO SCH (21:12)
[2020-12-11] MEDS: INSULIN GLARGINE 100 UNITS/ML 10 ML VIAL SQ SCH (21:12)
[2020-12-12] VITALS (24 sets, daily range): BP systolic 93–146; BP diastolic 43–71
[2020-12-12] MEDS: INSULIN HUMULIN R 100 UNIT/ML 3ML SQ SCH ×4 (00:01→17:08)
[2020-12-12] MEDS: CHLORHEXIDINE GLUCONATE 473 ML MOUTHWASH MM SCH ×4 (02:24→21:09)
[2020-12-12 04:31] LABS: ABG BASE EXCESS 1.7 mmol/L (-2.0-3.0); ABG HCO3 25.9 mmol/L (21.0-28.0); ABG OXYGEN SATURATION 91.3 % (95.0-99.0); ABG PCO2 39 mmHg (32-45)
[2020-12-12] MEDS: MIDAZOLAM 100MG-0.9% NS 100ML 100ML BAG IV PRN ×2 (04:49→17:08)
[2020-12-12] MEDS: CISATRACURIUM BESYLATE 100 MG in 0.9%NACL 100ML 100 ML IV SCH ×2 (04:54→10:29)
[2020-12-12 05:18] LABS: HEMATOCRIT 33.6 % (36-48); MEAN CORPUSCULAR HEMOGLOBIN 27.1 pg (27.0-33.0); MEAN CORPUSCULAR HGB CONC 30.4 g/dL (32.0-36.0); MEAN CORPUSCULAR VOLUME 89.4 fL (79-99); PLATELET COUNT (AUTO) 92 K/uL (130-400); RED BLOOD CELL COUNT(AUTO) 3.76 MIL/uL (4.00-5.50); RED CELL DISTRIBUTION WIDTH 15.3 % (11.0-15.5); WHITE BLOOD COUNT (AUTO) 12.4 K/uL (4.8-10.8)
[2020-12-12 05:34] LABS: CREATININE 0.5 mg/dL (0.5-1.5); POTASSIUM 4.2 mmol/L (3.5-5.1)
[2020-12-12] MEDS: 0.9% NACL 250ML 250 ML IV SCH ×2 (05:55→20:00)
[2020-12-12] MEDS: PANTOPRAZOLE 40 MG/VIAL IVP SCH ×2 (08:18→21:13)
[2020-12-12] MEDS: SOLU-MEDROL 125MG VIAL IVP SCH ×2 (08:18→21:13)
[2020-12-12] MEDS: AMIODARONE 200 MG TABLET PO SCH ×2 (08:18→21:13)
[2020-12-12] MEDS: FENTANYL 2500MCG+NS 250ML 250 ML IV SCH (14:24)
[2020-12-12] MEDS: MEMANTINE HCL 5 MG TABLET PO SCH (21:13)
[2020-12-12] MEDS: DONEPEZIL HCL 5 MG TAB PO SCH (21:13)
[2020-12-12] MEDS: ENOXAPARIN SODIUM 40 MG/0.4 ML SYRINGE SQ SCH (21:14)
[2020-12-12] MEDS: INSULIN GLARGINE 100 UNITS/ML 10 ML VIAL SQ SCH (21:20)
[2020-12-13] VITALS (24 sets, daily range): BP systolic 105–138; BP diastolic 42–72
[2020-12-13] MEDS: INSULIN HUMULIN R 100 UNIT/ML 3ML SQ SCH ×5 (00:15→23:58)
[2020-12-13] MEDS: CHLORHEXIDINE GLUCONATE 473 ML MOUTHWASH MM SCH ×4 (02:00→20:50)
[2020-12-13 04:20] LABS: ABG BASE EXCESS -1.4 mmol/L (-2.0-3.0); ABG HCO3 24.6 mmol/L (21.0-28.0); ABG OXYGEN SATURATION 93.9 % (95.0-99.0); ABG PCO2 46 mmHg (32-45)
[2020-12-13 04:54] LABS: HEMATOCRIT 38.3 % (36-48); MEAN CORPUSCULAR HEMOGLOBIN 26.9 pg (27.0-33.0); MEAN CORPUSCULAR HGB CONC 30.3 g/dL (32.0-36.0); MEAN CORPUSCULAR VOLUME 88.7 fL (79-99); RED BLOOD CELL COUNT(AUTO) 4.32 MIL/uL (4.00-5.50); RED CELL DISTRIBUTION WIDTH 15.7 % (11.0-15.5); WHITE BLOOD COUNT (AUTO) 13.9 K/uL (4.8-10.8)
[2020-12-13 05:14] LABS: CREATININE 0.6 mg/dL (0.5-1.5); MAGNESIUM 2.6 mg/dL (1.80-2.40); PHOSPHORUS 3.8 mg/dL (2.5-4.9); POTASSIUM 4.4 mmol/L (3.5-5.1)
[2020-12-13] MEDS: FENTANYL 2500MCG+NS 250ML 250 ML IV SCH (06:40)
[2020-12-13] MEDS: 0.9% NACL 250ML 250 ML IV SCH ×2 (07:27→20:00)
[2020-12-13] MEDS: SOLU-MEDROL 125MG VIAL IVP SCH ×2 (08:05→20:50)
[2020-12-13] MEDS: MIDAZOLAM 100MG-0.9% NS 100ML 100ML BAG IV PRN (08:05)
[2020-12-13] MEDS: AMIODARONE 200 MG TABLET PO SCH ×2 (08:05→20:49)
[2020-12-13] MEDS: PANTOPRAZOLE 40 MG/VIAL IVP SCH ×2 (08:05→20:50)
[2020-12-13] MEDS: FUROSEMIDE 20MG VIAL IV SCH ×3 (08:34→23:57)
[2020-12-13] MEDS ORDERED: FENTANYL CITRATE PF 0.05 MG/ML 1,000 MCG in 0.9%NACL 100ML 100 ML IVPB SCH (11:00)
[2020-12-13] MEDS: DONEPEZIL HCL 5 MG TAB PO SCH (20:49)
[2020-12-13] MEDS: MEMANTINE HCL 5 MG TABLET PO SCH (20:49)
[2020-12-13] MEDS: ENOXAPARIN SODIUM 40 MG/0.4 ML SYRINGE SQ SCH (20:50)
[2020-12-13] MEDS: INSULIN GLARGINE 100 UNITS/ML 10 ML VIAL SQ SCH (20:52)
[2020-12-14] VITALS (24 sets, daily range): BP systolic 99–166; BP diastolic 43–74
[2020-12-14] MEDS: MIDAZOLAM 100MG-0.9% NS 100ML 100ML BAG IV PRN ×2 (00:05→13:21)
[2020-12-14] MEDS: FENTANYL 2500MCG+NS 250ML 250 ML IV SCH ×2 (00:06→16:41)
[2020-12-14] MEDS: CHLORHEXIDINE GLUCONATE 473 ML MOUTHWASH MM SCH ×4 (02:56→19:55)
[2020-12-14 05:01] LABS: HEMATOCRIT 34.1 % (36-48); MEAN CORPUSCULAR HEMOGLOBIN 27.2 pg (27.0-33.0); MEAN CORPUSCULAR HGB CONC 31.1 g/dL (32.0-36.0); MEAN CORPUSCULAR VOLUME 87.4 fL (79-99); RED BLOOD CELL COUNT(AUTO) 3.9 MIL/uL (4.00-5.50); RED CELL DISTRIBUTION WIDTH 16.2 % (11.0-15.5); WHITE BLOOD COUNT (AUTO) 10.4 K/uL (4.8-10.8)
[2020-12-14 05:20] LABS: CREATININE 0.6 mg/dL (0.5-1.5); POTASSIUM 4.2 mmol/L (3.5-5.1)
[2020-12-14] MEDS: INSULIN HUMULIN R 100 UNIT/ML 3ML SQ SCH ×3 (05:41→17:20)
[2020-12-14 07:47] LABS: ABG BASE EXCESS 4.8 mmol/L (-2.0-3.0); ABG HCO3 30.4 mmol/L (21.0-28.0); ABG OXYGEN SATURATION 92.4 % (95.0-99.0); ABG PCO2 48 mmHg (32-45)
[2020-12-14] MEDS: 0.9% NACL 250ML 250 ML IV SCH ×2 (08:00→19:55)
[2020-12-14] MEDS: SOLU-MEDROL 125MG VIAL IVP SCH ×2 (08:02→19:56)
[2020-12-14] MEDS: AMIODARONE 200 MG TABLET PO SCH ×2 (08:02→19:56)
[2020-12-14] MEDS: PANTOPRAZOLE 40 MG/VIAL IVP SCH ×2 (08:02→19:55)
[2020-12-14] MEDS: FUROSEMIDE 20MG VIAL IV SCH ×2 (08:03→16:06)
[2020-12-14] MEDS: LACTULOSE 20 GM/30 ML UDCUP PO PRN (10:54)
[2020-12-14] MEDS: DONEPEZIL HCL 5 MG TAB PO SCH (19:56)
[2020-12-14] MEDS: MEMANTINE HCL 5 MG TABLET PO SCH (19:56)
[2020-12-14] MEDS: INSULIN GLARGINE 100 UNITS/ML 10 ML VIAL SQ SCH (20:42)
[2020-12-14] MEDS: ENOXAPARIN SODIUM 40 MG/0.4 ML SYRINGE SQ SCH (21:39)
[2020-12-15] VITALS (25 sets, daily range): BP systolic 80–181; BP diastolic 40–77
[2020-12-15] MEDS: INSULIN HUMULIN R 100 UNIT/ML 3ML SQ SCH ×4 (00:44→17:14)
[2020-12-15] MEDS: CHLORHEXIDINE GLUCONATE 473 ML MOUTHWASH MM SCH ×4 (01:03→20:36)
[2020-12-15] MEDS: MIDAZOLAM 100MG-0.9% NS 100ML 100ML BAG IV PRN ×2 (02:57→17:34)
[2020-12-15 04:35] LABS: ABG BASE EXCESS 1.2 mmol/L (-2.0-3.0); ABG HCO3 25.4 mmol/L (21.0-28.0); ABG PCO2 39 mmHg (32-45)
[2020-12-15 05:05] LABS: BASOPHILS % (AUTO) 0.2 % (0.0-5.0); HEMATOCRIT 34.9 % (36-48); LYMPHOCYTES % (AUTO) 3.9 % (21.0-51.0); MEAN CORPUSCULAR HEMOGLOBIN 26.7 pg (27.0-33.0); MEAN CORPUSCULAR HGB CONC 29.5 g/dL (32.0-36.0); MEAN CORPUSCULAR VOLUME 90.4 fL (79-99); MONOCYTES % (AUTO) 3.7 % (3.0-13.0); NEUTROPHILS % (AUTO) 91.6 % (40.0-77.0); PLATELET COUNT (AUTO) 117 K/uL (130-400); RED BLOOD CELL COUNT(AUTO) 3.86 MIL/uL (4.00-5.50); RED CELL DISTRIBUTION WIDTH 16.9 % (11.0-15.5); WHITE BLOOD COUNT (AUTO) 9.8 K/uL (4.8-10.8)
[2020-12-15 05:14] LABS: CREATININE 0.6 mg/dL (0.5-1.5); POTASSIUM 4.1 mmol/L (3.5-5.1)
[2020-12-15] MEDS: 0.9% NACL 250ML 250 ML IV SCH ×2 (08:00→20:00)
[2020-12-15] MEDS: SOLU-MEDROL 40MG VIAL IVP SCH ×2 (08:16→20:36)
[2020-12-15] MEDS: PANTOPRAZOLE 40 MG/VIAL IVP SCH ×2 (08:16→20:36)
[2020-12-15] MEDS: FUROSEMIDE 20MG VIAL IV SCH ×2 (08:16→20:36)
[2020-12-15] MEDS: AMIODARONE 200 MG TABLET PO SCH ×2 (08:17→20:36)
[2020-12-15] MEDS: FENTANYL 2500MCG+NS 250ML 250 ML IV SCH (09:40)
[2020-12-15] MEDS: LACTULOSE 20 GM/30 ML UDCUP PO PRN (14:31)
[2020-12-15] MEDS: MEMANTINE HCL 5 MG TABLET PO SCH (20:36)
[2020-12-15] MEDS: DONEPEZIL HCL 5 MG TAB PO SCH (20:36)
[2020-12-15] MEDS: INSULIN GLARGINE 100 UNITS/ML 10 ML VIAL SQ SCH (20:37)
[2020-12-15] MEDS: ENOXAPARIN SODIUM 40 MG/0.4 ML SYRINGE SQ SCH (20:37)
[2020-12-16] VITALS (42 sets, daily range): BP systolic 77–176; BP diastolic 35–97
[2020-12-16] MEDS: CHLORHEXIDINE GLUCONATE 473 ML MOUTHWASH MM SCH ×4 (03:22→20:33)
[2020-12-16] MEDS: FENTANYL 2500MCG+NS 250ML 250 ML IV SCH (03:23)
[2020-12-16] MEDS: INSULIN HUMULIN R 100 UNIT/ML 3ML SQ SCH ×4 (06:00→17:27)
[2020-12-16] MEDS: 0.9% NACL 250ML 250 ML IV SCH (08:00)
[2020-12-16 08:11] LABS: CREATININE 0.5 mg/dL (0.5-1.5); MAGNESIUM 2.3 mg/dL (1.80-2.40); POTASSIUM 4.1 mmol/L (3.5-5.1)
[2020-12-16] MEDS: FUROSEMIDE 20MG VIAL IV SCH ×2 (08:16→20:31)
[2020-12-16] MEDS: AMIODARONE 200 MG TABLET PO SCH ×2 (08:16→20:31)
[2020-12-16] MEDS: PANTOPRAZOLE 40 MG/VIAL IVP SCH ×2 (08:16→20:30)
[2020-12-16] MEDS: SOLU-MEDROL 40MG VIAL IVP SCH ×2 (08:16→20:30)
[2020-12-16] MEDS: ERGOCALCIFEROL (VITAMIN D2) 50,000 UNIT CAPSULE PO SCH (08:17)
[2020-12-16] MEDS ORDERED: PHARMACY COMMUNICATION MISC SCH ×2 (09:00→14:30)
[2020-12-16] MEDS ORDERED: POLYETHYLENE GLYCOL 3350 17 GM POWD.PACK PO SCH (09:00)
[2020-12-16] MEDS ORDERED: DOPAMINE 800MG/D5 250ML 250 ML IV PRN (09:30)
[2020-12-16] MEDS: MIDAZOLAM 100MG-0.9% NS 100ML 100ML BAG IV PRN (12:57)
[2020-12-16] MEDS ORDERED: AMIODARONE 150MG VIAL 150 MG in DEXTROSE 5%-WATER 100 ML IV SCH (15:30)
[2020-12-16] MEDS ORDERED: AMIODARONE 900MG VIAL 360 MG in DEXTROSE 5%-WATER 200 ML IV SCH (16:00)
[2020-12-16] MEDS: MEMANTINE HCL 5 MG TABLET PO SCH (20:30)
[2020-12-16] MEDS: DONEPEZIL HCL 5 MG TAB PO SCH (20:31)
[2020-12-16] MEDS: INSULIN GLARGINE 100 UNITS/ML 10 ML VIAL SQ SCH (21:00)
[2020-12-16] MEDS: ENOXAPARIN SODIUM 40 MG/0.4 ML SYRINGE SQ SCH (21:42)
[2020-12-16] MEDS ORDERED: AMIODARONE 900MG VIAL 450 MG in DEXTROSE 5%-WATER 250 ML IV SCH (22:00)
[2020-12-17] VITALS (58 sets, daily range): BP systolic 75–188; BP diastolic 37–90
[2020-12-17] MEDS: CHLORHEXIDINE GLUCONATE 473 ML MOUTHWASH MM SCH ×4 (01:32→21:17)
[2020-12-17] MEDS: FENTANYL 2500MCG+NS 250ML 250 ML IV SCH ×2 (02:02→17:11)
[2020-12-17] MEDS: NOREPINEPHRINE 4MG/NS 250ML 250 ML IV SCH (04:13)
[2020-12-17] MEDS: INSULIN HUMULIN R 100 UNIT/ML 3ML SQ SCH ×4 (05:50→17:09)
[2020-12-17] MEDS ORDERED: POLYETHYLENE GLYCOL 3350 17 GM POWD.PACK PO PRN (08:00)
[2020-12-17] MEDS: SOLU-MEDROL 40MG VIAL IVP SCH ×2 (08:22→21:16)
[2020-12-17] MEDS: AMIODARONE 200 MG TABLET PO SCH ×2 (08:22→21:17)
[2020-12-17] MEDS: PANTOPRAZOLE 40 MG/VIAL IVP SCH ×2 (08:22→21:16)
[2020-12-17] MEDS: FUROSEMIDE 20MG VIAL IV SCH ×2 (08:22→21:16)
[2020-12-17] MEDS: MIDAZOLAM 100MG-0.9% NS 100ML 100ML BAG IV PRN (09:25)
[2020-12-17] MEDS: ENOXAPARIN SODIUM 40 MG/0.4 ML SYRINGE SQ SCH (21:16)
[2020-12-17] MEDS: DONEPEZIL HCL 5 MG TAB PO SCH (21:17)
[2020-12-17] MEDS: MEMANTINE HCL 5 MG TABLET PO SCH (21:17)
[2020-12-17] MEDS: INSULIN GLARGINE 100 UNITS/ML 10 ML VIAL SQ SCH (21:19)
[2020-12-18] VITALS (80 sets, daily range): BP systolic 99–180; BP diastolic 36–94
[2020-12-18] MEDS: INSULIN HUMULIN R 100 UNIT/ML 3ML SQ SCH ×4 (00:09→17:57)
[2020-12-18] MEDS: CHLORHEXIDINE GLUCONATE 473 ML MOUTHWASH MM SCH ×4 (01:24→21:31)
[2020-12-18 03:37] LABS: ABG BASE EXCESS 5.7 mmol/L (-2.0-3.0); ABG HCO3 30.8 mmol/L (21.0-28.0); ABG OXYGEN SATURATION 92.8 % (95.0-99.0); ABG PCO2 47 mmHg (32-45)
[2020-12-18] MEDS: MIDAZOLAM 100MG-0.9% NS 100ML 100ML BAG IV PRN ×2 (04:07→05:19)
[2020-12-18 05:41] LABS: BASOPHILS % (AUTO) 0.2 % (0.0-5.0); EOSINOPHILS % (AUTO) 0.2 % (0.0-8.0); HEMATOCRIT 27.6 % (36-48); LYMPHOCYTES % (AUTO) 5.2 % (21.0-51.0); MEAN CORPUSCULAR HEMOGLOBIN 27.1 pg (27.0-33.0); MEAN CORPUSCULAR HGB CONC 30.4 g/dL (32.0-36.0); MONOCYTES % (AUTO) 3.6 % (3.0-13.0); NEUTROPHILS % (AUTO) 90.5 % (40.0-77.0); NUCLEATED RED BLOOD CELLS 0.3 % (0.0-0.19); PLATELET COUNT (AUTO) 93 K/uL (130-400); RED CELL DISTRIBUTION WIDTH 16.9 % (11.0-15.5); WHITE BLOOD COUNT (AUTO) 5.8 K/uL (4.8-10.8)
[2020-12-18 05:50] LABS: CREATININE 0.4 mg/dL (0.5-1.5); MAGNESIUM 2.1 mg/dL (1.80-2.40); POTASSIUM 3.8 mmol/L (3.5-5.1)
[2020-12-18] MEDS: FUROSEMIDE 20MG VIAL IV SCH ×2 (07:34→20:07)
[2020-12-18] MEDS: AMIODARONE 200 MG TABLET PO SCH ×2 (08:00→20:06)
[2020-12-18] MEDS: PANTOPRAZOLE 40 MG/VIAL IVP SCH ×2 (08:00→20:05)
[2020-12-18] MEDS: SOLU-MEDROL 40MG VIAL IVP SCH ×2 (08:00→20:06)
[2020-12-18] MEDS ORDERED: PHARMACY COMMUNICATION MISC SCH (16:30)
[2020-12-18] MEDS: FENTANYL 2500MCG+NS 250ML 250 ML IV SCH (17:04)
[2020-12-18] MEDS: MEMANTINE HCL 5 MG TABLET PO SCH (20:06)
[2020-12-18] MEDS: DONEPEZIL HCL 5 MG TAB PO SCH (20:06)
[2020-12-18] MEDS: INSULIN GLARGINE 100 UNITS/ML 10 ML VIAL SQ SCH (21:30)
[2020-12-18] MEDS: ENOXAPARIN SODIUM 40 MG/0.4 ML SYRINGE SQ SCH (23:06)
[2020-12-19] VITALS (51 sets, daily range): BP systolic 77–166; BP diastolic 31–90
[2020-12-19] MEDS: INSULIN HUMULIN R 100 UNIT/ML 3ML SQ SCH ×4 (00:05→16:46)
[2020-12-19] MEDS: MIDAZOLAM 100MG-0.9% NS 100ML 100ML BAG IV PRN ×2 (01:33→16:50)
[2020-12-19] MEDS: CHLORHEXIDINE GLUCONATE 473 ML MOUTHWASH MM SCH ×4 (01:37→19:36)
[2020-12-19] MEDS: AMIODARONE 200 MG TABLET PO SCH ×2 (08:48→19:38)
[2020-12-19] MEDS: FUROSEMIDE 20MG VIAL IV SCH ×2 (08:48→19:35)
[2020-12-19] MEDS: SOLU-MEDROL 40MG VIAL IVP SCH ×2 (08:48→19:36)
[2020-12-19] MEDS: PANTOPRAZOLE 40 MG/VIAL IVP SCH ×2 (08:48→19:35)
[2020-12-19] MEDS: FENTANYL 2500MCG+NS 250ML 250 ML IV SCH (09:07)
[2020-12-19] MEDS: METOPROLOL TARTRATE 1 MG/ML 5ML VIAL IV PRN ×2 (10:53→19:37)
[2020-12-19] MEDS: INSULIN GLARGINE 100 UNITS/ML 10 ML VIAL SQ SCH (19:33)
[2020-12-19] MEDS: ENOXAPARIN SODIUM 40 MG/0.4 ML SYRINGE SQ SCH (19:34)
[2020-12-19] MEDS: MEMANTINE HCL 5 MG TABLET PO SCH (19:36)
[2020-12-19] MEDS: DONEPEZIL HCL 5 MG TAB PO SCH (19:36)
[2020-12-20] VITALS (60 sets, daily range): BP systolic 61–169; BP diastolic 38–106
[2020-12-20] MEDS: INSULIN HUMULIN R 100 UNIT/ML 3ML SQ SCH ×4 (00:25→18:29)
[2020-12-20] MEDS: CHLORHEXIDINE GLUCONATE 473 ML MOUTHWASH MM SCH ×4 (02:00→20:00)
[2020-12-20] MEDS: FENTANYL 2500MCG+NS 250ML 250 ML IV SCH (02:04)
[2020-12-20 05:14] LABS: HEMATOCRIT 25.3 % (36-48); MEAN CORPUSCULAR HEMOGLOBIN 27.5 pg (27.0-33.0); MEAN CORPUSCULAR HGB CONC 30.4 g/dL (32.0-36.0); MEAN CORPUSCULAR VOLUME 90.4 fL (79-99); PLATELET COUNT (AUTO) 68 K/uL (130-400); RED CELL DISTRIBUTION WIDTH 17.3 % (11.0-15.5); WHITE BLOOD COUNT (AUTO) 5.7 K/uL (4.8-10.8)
[2020-12-20 05:28] LABS: CREATININE 0.4 mg/dL (0.5-1.5); POTASSIUM 3.5 mmol/L (3.5-5.1)
[2020-12-20] MEDS: METOPROLOL TARTRATE 1 MG/ML 5ML VIAL IV PRN ×3 (06:07→14:58)
[2020-12-20 06:12] LABS: PLATELET MORPHOLOGY COMMENT DECREASED
[2020-12-20] MEDS: AMIODARONE 200 MG TABLET PO SCH ×2 (08:00→19:54)
[2020-12-20] MEDS: FUROSEMIDE 20MG VIAL IV SCH ×2 (08:00→19:53)
[2020-12-20] MEDS: SOLU-MEDROL 40MG VIAL IVP SCH ×2 (08:00→19:53)
[2020-12-20] MEDS: PANTOPRAZOLE 40 MG/VIAL IVP SCH ×2 (08:00→20:50)
[2020-12-20] MEDS: MIDAZOLAM 100MG-0.9% NS 100ML 100ML BAG IV PRN (08:03)
[2020-12-20] MEDS ORDERED: KCL 20 MEQ ERTAB PO PRN (08:30)
[2020-12-20] MEDS ORDERED: LIDOCAINE HCL-MPF 1% 2ML VIAL IJ PRN (08:30)
[2020-12-20] MEDS ORDERED: POTASSIUM CHLORIDE 20MEQ/100ML 100 ML IV PRN (08:30)
[2020-12-20] MEDS: POTASSIUM CHLORIDE 10% ELIXIR 20 MEQ/15 ML UDCUP PO PRN ×2 (10:10→14:48)
[2020-12-20] MEDS ORDERED: AMIODARONE 900MG VIAL 900 MG in DEXTROSE 5%-WATER 500 ML IV SCH (16:00)
[2020-12-20] MEDS: NOREPINEPHRINE 4MG/NS 250ML 250 ML IV SCH ×3 (16:11→19:12)
[2020-12-20] MEDS ORDERED: METOPROLOL TARTRATE 1 MG/ML 5ML VIAL IV SCH (16:51)
[2020-12-20] MEDS: PHENYLEPHRINE HCL 10 MG in 0.9% NACL 250ML 250 ML IV PRN (17:19)
[2020-12-20] MEDS: PHENYLEPHRINE HCL 50 MG in 0.9% NACL 250ML 250 ML IV PRN ×2 (18:35→22:48)
[2020-12-20] MEDS: MEMANTINE HCL 5 MG TABLET PO SCH (19:52)
[2020-12-20] MEDS: DONEPEZIL HCL 5 MG TAB PO SCH (19:53)
[2020-12-20] MEDS ORDERED: 0.9%NACL 10ML VIAL ONE (20:46)
[2020-12-20] MEDS: INSULIN GLARGINE 100 UNITS/ML 10 ML VIAL SQ SCH (20:53)
[2020-12-20] MEDS ORDERED: PHARMACY COMMUNICATION MISC SCH (21:30)
[2020-12-20] MEDS: [UNRECOGNIZED DRUG - OTHER] IV SCH (22:32)
[2020-12-20] MEDS: NOREPINEPHRINE IV SCH (22:32)
[2020-12-20] MEDS ORDERED: VASOPRESSIN 20 UNITS/ML 1ML VIAL ONE (23:34)
[2020-12-21] MEDS: INSULIN HUMULIN R 100 UNIT/ML 3ML SQ SCH
[2020-12-21] MEDS ORDERED: VASOPRESSIN 20 UNITS in 0.9%NACL 100ML 100 ML IV SCH ×2
[2020-12-21] MEDS: ENOXAPARIN SODIUM 40 MG/0.4 ML SYRINGE SQ SCH (00:21)
[2020-12-21 00:45] VITALS: BP 104/60
[2020-12-21] MEDS ORDERED: ATROPINE 1MG SYG IVP SCH (01:06)
[2020-12-21] MEDS ORDERED: ATROPINE 1MG SYG IVP ONE ×3 (01:06→03:46)
[2020-12-21] MEDS: PHENYLEPHRINE HCL 50 MG in 0.9% NACL 250ML 250 ML IV PRN ×2 (01:41→03:39)
[2020-12-21] MEDS: NOREPINEPHRINE IV SCH (01:42)
[2020-12-21] MEDS: [UNRECOGNIZED DRUG - OTHER] IV SCH (01:42)
[2020-12-21] MEDS: CHLORHEXIDINE GLUCONATE 473 ML MOUTHWASH MM SCH (01:44)
== END 2020-12-21 04:18 | DRG 207 ==
LOC: EDH 18:46 → INTOOBSV 22:15 → OBSVTOIN 22:15 → EDHIP 22:15 → 2BH 23:34
PROVIDERS: ADMIT Internal Medicine Infectious Disease; ATTEND Internal Medicine Infectious Disease
PROC: 5A0935A Assistance with Respiratory Ventilation, Less than 24 Consecutive Hours, High Flow/Velocity Cannula (ICD-10-PCS; 2020-11-25)
PROC: 5A09357 Assistance with Respiratory Ventilation, Less than 24 Consecutive Hours, Continuous Positive Airway Pressure (ICD-10-PCS; 2020-11-25)
PROC: XW033H5 Introduction of Tocilizumab into Peripheral Vein, Percutaneous Approach, New Technology Group 5 (ICD-10-PCS; 2020-11-25)
PROC: 5A0935A Assistance with Respiratory Ventilation, Less than 24 Consecutive Hours, High Flow/Velocity Cannula (ICD-10-PCS; 2020-11-26)
PROC: 5A09357 Assistance with Respiratory Ventilation, Less than 24 Consecutive Hours, Continuous Positive Airway Pressure (ICD-10-PCS; 2020-11-26)
PROC: 5A1955Z Respiratory Ventilation, Greater than 96 Consecutive Hours (ICD-10-PCS; 2020-11-27)
PROC: 0BH17EZ Insertion of Endotracheal Airway into Trachea, Via Natural or Artificial Opening (ICD-10-PCS; 2020-11-27)
PROC: 02HV33Z Insertion of Infusion Device into Superior Vena Cava, Percutaneous Approach (ICD-10-PCS; principal; 2020-11-29)
PROC: 0W9930Z Drainage of Right Pleural Cavity with Drainage Device, Percutaneous Approach (ICD-10-PCS; 2020-12-02)
PROC: 0W9930Z Drainage of Right Pleural Cavity with Drainage Device, Percutaneous Approach (ICD-10-PCS; 2020-12-05)
DX: U07.1 COVID-19 (principal); J12.82 Pneumonia due to coronavirus disease 2019; J80 Acute respiratory distress syndrome; A41.9 Sepsis, unspecified organism; R65.21 Severe sepsis with septic shock; E87.1 Hypo-osmolality and hyponatremia; J93.83 Other pneumothorax; E87.0 Hyperosmolality and hypernatremia; I48.20 Chronic atrial fibrillation, unspecified; N17.9 Acute kidney failure, unspecified; I10 Essential (primary) hypertension; F03.90 Unspecified dementia, unspecified severity, without behavioral disturbance, psychotic disturbance, mood disturbance, and anxiety; Z66 Do not resuscitate; Z68.36 Body mass index [BMI] 36.0-36.9, adult; M81.0 Age-related osteoporosis without current pathological fracture; R32 Unspecified urinary incontinence; G83.9 Paralytic syndrome, unspecified; R53.81 Other malaise; F41.9 Anxiety disorder, unspecified; D69.6 Thrombocytopenia, unspecified; E66.01 Morbid (severe) obesity due to excess calories; E78.00 Pure hypercholesterolemia, unspecified; K59.00 Constipation, unspecified; Z74.01 Bed confinement status; Z93.1 Gastrostomy status; Z88.8 Allergy status to other drugs, medicaments and biological substances
CPT/HCPCS: 31500; 36415; 36600; 71045; 71275; 80048; 80053; 81001; 82435; 82550; 82803; 82947; 82948; 83605; 83735; 83874; 83880; 84100; 84132; 84145; 84295; 84484; 85018; 85025; 85027; 85378; 85610; 86140; 86850; 86900; 86901; 87040; 87088; 87635; 93005; 94002; 94003; 94640; 94660; 94664; C1751; C1894; C9113; G0378; J0282; J0456; J0461; J0696; J1200; J1265; J1650; J1815; J1940; J2250; J2370; J2920; J2930; J3010; J3475; J3490; J7030; J7050; J7060; Q9967